=== PATIENT | male | born 1950 | race Caucasian/White ===

== ENCOUNTER → 2016-08-01 12:26 | Outpatient (CLI) | payer MEDICARE, OTHER ==
[2016-01-12 17:00] VITALS: BMI 20.8
[~2016-08-01 12:26] MED LIST: ADDERALL 30 MG30 MG PO; ALLERGY SHOTS; ASPIRIN EC81 M1 PO; BYSTOLIC10 MG PO; COREG6.25 MG PO; DULERA 100 MCG8.8 GM INH; FEXOFENADINE H180 MG PO; FLOMAX0.4 MG PO; HYDROCODONE-APA1 TAB PO; LISINOPRIL5 MG PO; NORVASC5 MG PO; PEPCID40 MG PO; PHENERGAN25 M1 PO; PLAVIX75 MG PO; PRILOSEC2.5 MG; PRILOSEC20 MG PO; REGLAN10 MG PO; TUMS500 MG; VENTOLIN HFA18 GM; VIAGRA100 MG PO
== END | disposition home or self-care (01) ==
LOC: D.LAB 12:26
DX: C61 Malignant neoplasm of prostate (principal)

== ENCOUNTER → 2018-11-14 13:29 | Outpatient (CLI) | payer MEDICARE, OTHER ==
[2016-01-12 17:00] VITALS: BMI 20.8
--- NOTE | 2018-11-16 13:25 | EC ---
PATIENT:ANNY HWANG DATE OF SERVICE: 11/14/18 SEX: M MEDICAL RECORD: [id number] DATE OF : 50 LOCATION:[facility] AGE OF PATIENT: 68 ADMISSION DATE: 11/14/18 REFERRING PHYSICIAN: INTERPRETING PHYSICIAN: NAZIA GARNETT MD ECHOCARDIOGRAM REPORT ECHO CHARGES 4 ECHO COMPLETE Date: 11/14/18 CLINICAL DIAGNOSIS: HTN/ASSESS MR/TR ECHOCARDIOGRAPHIC MEASUREMENTS (adult normal given) AC root (d.<3.7cm) 3.6 cm LV Septum d (<1.2 cm> 1.2 cm Valve Excursion 1.9 cm LV Septum (systole) 1.7 cm Left Atria (s.<4.0cm> 3.8 cm LVPW d(<1.2cm) 1.5 cm RV (d.<2.3cm) 3.6 cm LVPW (sytole) 1.8 cm LV diastole(<5.6CM) 5.5 cm MV E-F(>70mm/sec) cm LV systole 4.1 cm LVOT Diameter 2.0 cm MV exc.(>10mm) 1.5 cm Est.ejection fraction (50-75%) % DOPPLER: LVIT cm/sec A 82.0 cm/sec E 56.0 cm/sec LA cm/sec RVSP 32 mmHg LVOT 88 cm/sec AOP1/2T m/s Asc. Ao 115 cm/sec RVOT 69 cm/sec RA cm/sec PA 98 cm/sec AV Gradient Peak 5.29 mmHg AV Mean 2.71 mmHg AV Area 2.4 cm MV Gradient Peak 3.20 mmHg MV Mean 1.30 mmHg MV Area cm COMMENTS: Seat Installer: Lukas MONTALVO [employer] Production Heater: 1 Dr. Garnett TAPE# PACS Pericardial Effusion N DATE OF SERVICE: 11/14/2018 ECHOCARDIOGRAM DATE OF SERVICE: 11/14/2018 FINDINGS: 1. Left ventricular chamber size is within normal limits. Left ventricular systolic function is normal. Overall ejection fraction estimated at 60%. 2. Left atrium is within normal limits at 3.8 cm. Right atrium and right ECHOCARDIOGRAM REPORT [id number] ANNY HWANG ventricular chamber sizes are mildly dilated. 3. Valvular structures have normal structure and motion. 4. Doppler interrogation reveals mild mitral regurgitation, mild tricuspid regurgitation, no other valvular insufficiency or stenosis. Pulmonary systolic pressure is estimated at 32 mmHg. 5. No evidence of pericardial effusion or left ventricular thrombus. TRANSINT:[id number] Voice Confirmation ID: [id number] DOCUMENT ID: [id number] NAZIA GARNETT MD at 1325 CC: [id number] DICTATION DATE: 11/14/18 171 INDUCTION HEAT TREATER: 11/14/18 175 DEP CLI 11/14/18 [id number] [place] [address]
== END | disposition home or self-care (01) ==
LOC: D.HCCARDIO 13:29
PROVIDERS: ATTEND Internal Medicine Interventional Cardiology
DX: I10 Essential (primary) hypertension (principal)